=== PATIENT | female | born 1965 | race Hispanic/Latino ===

== ENCOUNTER 2017-02-05 15:49 | Outpatient (CLI) | payer OTHER | END 2017-02-05 15:50 | disposition home or self-care (01) | LOC: BICMAMMO 15:49 | PROVIDERS: ATTEND Nurse Practitioner Family | DX: Z12.31 Encounter for screening mammogram for malignant neoplasm of breast (principal) | CPT/HCPCS: 77067; G0202 ==

== ENCOUNTER 2019-09-01 09:45 | Outpatient (CLI) | payer OTHER ==
--- NOTE | 2019-09-01 10:58 | ULT ---
Exam: Transabdominal and endovaginal pelvic ultrasound HISTORY:Postmenopausal bleeding COMPARISON: None TECHNIQUE: Transabdominal and endovaginal imaging of the pelvis is performed. Ovaries are interrogate d with grayscale, color flow, Doppler imaging and spectral wave form analysis FINDINGS: Uterus: Multiple solid echotexture masses involving the myometrium, some of them being central serosa l and some be intramural. [employer] lesions measure 1.1 x 1.0 x 0.9 cm and 1.1 x 0.8 x 1.0 cm. Uterus measurin.1 x 5.8 x 5.1 cm. Endometrium: Homogeneous echotexture. Endometrium diameter: 0.3 cm. Nabothian cyst is noted. Free fluid: None Right ovary: Questionable right ovary. Possible right ovary measurement: 1.4 x 1.3 x 2.0 cm Left ovary: Normal echotexture. 2 separate anechoic foci are present. Largest cyst measures 1.4 x 1.7 x 2.1 cm Left ovary measurements: 4.0 x 2.0 x 3.2 cm Ovarian Doppler: There is vascular flow to the left ovary. No flow to the right adnexal structure which may or may not be the ovary. IMPRESSION: 1. Multiple uterine leiomyomas 2. Questionable right ovary without demonstrable flow.
== END 2019-09-01 09:46 | disposition home or self-care (01) ==
LOC: BICULT 09:45
PROVIDERS: ATTEND Nurse Practitioner
DX: N95.0 Postmenopausal bleeding (principal); D25.1 Intramural leiomyoma of uterus; D25.2 Subserosal leiomyoma of uterus
CPT/HCPCS: 76856